=== PATIENT | female | born 1985 | race Caucasian/White ===

== ENCOUNTER 2018-02-10 11:07 | Outpatient (CLI) | payer OTHER | END 2018-02-10 17:00 | disposition home or self-care (01) | LOC: RAD 11:07 → RX STUDY 11:15 → RAD 17:00 | DX: N92.1 Excessive and frequent menstruation with irregular cycle (principal) ==

== ENCOUNTER 2018-06-18 10:00 | Day surgery (SDC) | payer OTHER ==
[~2018-06-18 10:00] MED LIST: LOSARTAN-HCTZ1 EACH PO; PROTONIX20 MG PO
[2018-06-18] MEDS ORDERED: NAPROXEN500 MG PO (16:47)
[2018-06-18] MEDS ORDERED: DOXYCYCLINE HY100 MG PO (16:47)
== END 2018-06-18 20:50 | disposition home or self-care (01) ==
LOC: CIR.AMB 10:00
DX: N84.0 Polyp of corpus uteri (principal); D25.9 Leiomyoma of uterus, unspecified